=== PATIENT | female | born 1960 | race Caucasian/White ===

== ENCOUNTER 2016-10-15 00:21 | Emergency (ER) | payer OTHER ==
[~2016-10-15] VITALS: Ht 154.9 cm; Wt 77.1 kg
[2016-10-15] MEDS ORDERED: HYDROcodone-ACET 10/325MG TAB PO ONE ×2 (02:30→03:15)
[2016-10-15] MEDS ORDERED: KETOROLAC TROMETH 60MG/2ML VIAL IM ONE ×3 (02:30→03:15)
[2016-10-15] MEDS ORDERED: HYDROcodone-ACET 10/325MG TAB ONE (02:47)
[2016-10-15 04:06] VITALS: BP 112/68
== END 2016-10-15 05:17 | disposition home or self-care (01) ==
LOC: ER 00:38
DX: S82.422A Displaced transverse fracture of shaft of left fibula, initial encounter for closed fracture (principal); W18.31XA Fall on same level due to stepping on an object, initial encounter; Y93.89 Activity, other specified; Y92.89 Other specified places as the place of occurrence of the external cause; Y99.8 Other external cause status
CPT/HCPCS: 29515; 73610; 96372; 99284; J1885